=== PATIENT | female | born 1975 | race American Indian/Alaskan Native ===

== ENCOUNTER 2016-06-27 21:29 | Emergency (ER) | payer MEDICAID, OTHER ==
[2016-06-27 21:29] VITALS: BMI 20.8
[2016-06-27 21:57] VITALS: TEMP 98.2
--- NOTE | 2016-06-27 22:18 | C.PDOC ---
History Of Present Illness 40 year old patient, with a past medical history of hypertension, depression, and gastritis, presents to the ED complaining of high blood pressure after she checked it at [facility] just prior to arrival. Patient notes she ran out of her medications about 3 months ago. She was taking 10 mg of Norvasc and requests medication to take home. Patient denies chest pain, shortness of breath, palpitations, nausea or vomiting. Time Seen by Provider: 06/27/16 22:11 Chief Complaint (Nursing): Dizziness/Lightheaded History Per: Patient History/Exam Limitations: no limitations Onset/Duration Of Symptoms: Mins (just prior to arrival) Current Symptoms Are (Timing): Still Present Severity: None Pain Scale Rating Of: 0 Recent travel outside of the [place]: No Past Medical History Reviewed: Historical Data, Nursing Documentation, Vital Signs Vital Signs: Last Vital Signs Temp 98.2 F 06/27/16 21:52 Pulse 84 06/27/16 22:57 Resp 14 06/27/16 22:57 BP 164/98 H 06/27/16 22:57 Pulse Ox 100 06/28/16 02:04 - Medical History PMH: Depression, Gastritis, HTN Family History: States: Unknown Family Hx - Social History Hx Alcohol Use: No Hx Substance Use: No - Immunization History Hx Tetanus Toxoid Vaccination: Yes Hx Influenza Vaccination: No Hx Pneumococcal Vaccination: Yes Review Of Systems Except As Marked, All Systems Reviewed And Found Negative. Cardiovascular: Negative for: Chest Pain, Palpitations Respiratory: Negative for: Shortness of Breath Gastrointestinal: Negative for: Nausea, Vomiting Physical Exam - Physical Exam Appears: Non-toxic, No Acute Distress Skin: Warm, Dry Head: Atraumatic, Normacephalic Eye(s): bilateral: PERRL, EOMI Oral Mucosa: Moist Neck: Normal ROM, Supple Chest: Symmetrical Cardiovascular: Rhythm Regular Respiratory: Normal Breath Sounds, No Rales, No Rhonchi, No Wheezing Gastrointestinal/Abdominal: Soft, No Tenderness Back: Normal Inspection, No CVA Tenderness Extremity: Normal ROM Neurological/Psych: Oriented x3, Normal Speech, Normal Cognition, Normal Motor, Normal Sensation Gait: Steady ED Course And Treatment O2 Sat by Pulse Oximetry: 100 (RA) Pulse Ox Interpretation: Normal Progress Note: Plan: Norvasc Medical Decision Making Medical Decision Making: prior Amlodipine 10 mg daily, lost to f/u and pt did not refill due to insurance issues Explained $4/month prescription programs and selected Amlodipine as pt prior good tolerance, though ACEI would usually be first line... Disposition Doctor Will See Patient In The: Office Counseled Patient/Family Regarding: Studies Performed, Diagnosis - Disposition Referrals: [facility] [Outside] Disposition: HOME/ ROUTINE Disposition Time: 22:18 Condition: GOOD Additional Instructions: continue Amlodipine/Norvasc 10 mg daily (Take in the morning) You should NEVER run out of blood pressure medicines! Return to our ED or Clinic or [facility] for refills and re-eval. Prescriptions: amLODIPine [Norvasc] 10 mg PO DAILY #30 tab Instructions: Hypertension (ED) - Clinical Impression Clinical Impression: Hypertension - Scribe Statement The provider has reviewed the documentation as recorded by the Scribe Mariposa Moody Provider Attestation: All medical record entries made by the Scribe were at my direction and personally dictated by me. I have reviewed the chart and agree that the record accurately reflects my personal performance of the history, physical exam, medical decision making, and the department course for this patient. I have also personally directed, reviewed, and agree with the discharge instructions and disposition.
[2016-06-27 22:58] VITALS: BP 164/98; PULSE 84; RESP 14
[2016-06-27 23:38] VITALS: O2SAT 100
== END 2016-06-27 22:30 | disposition home or self-care (01) ==
LOC: C.ER 21:29
DX: I10 Essential (primary) hypertension (principal)